=== PATIENT | female | born 1960 | race Caucasian/White ===

== ENCOUNTER 2017-02-08 09:00 | Inpatient (IN) | payer OTHER, MEDICARE ==
--- NOTE | ~2017-02-08 | HP ---
History And Physical [place] [address] [facility] [place]. [address] NAME: ECHO OLSON : 60 STATUS : ADM IN [facility]#: [id number] AGE: 56 ADM/REG DATE : 02/08/17 MR#: [id number] REPORT SERV DATE: 02/08/17 DICTATED BY: DIOMEDESQUENTIN WEBER DATE: 02/08/17 REPORT STATUS : Draft TRANSCRIBED BY: MODL DATE: 02/08/17 DATE OF ADMISSION: 02/08/2017 CHIEF COMPLAINT: Infected pain pump. HISTORY OF PRESENT ILLNESS: This is a 56-year-old lady with a history of pain pump implantation two months ago, presenting with an infected pain pump. Currently, the patient is postop and she is really not able to give a good history as the patient is coming off the anesthesia. This H and P is formulated from some of the history that was provided by the patient as well as from careful review of existing medical records. The patient apparently has had a cellulitis of her bottom for quite some time. It failed to get better as an outpatient, and thus the patient decided to come to the ER for further evaluation and care. When the patient presented to the ER, the patient appeared clinically ill and when she went to the bathroom, her bottom opened and apparently started draining pus. CT of the abdomen and pelvis was performed, which showed a fluid surrounding spinal wires posterior to the lumbar spine in L2 and small amount of air surrounding the stimulator device. The patient was thus immediately taken to the OR by Dr. Stern, who implanted the device in the first place about two months ago. The patient is now postop. REVIEW OF SYSTEMS: The patient denies any fevers or chills. Also, 14-point review of systems reviewed and negative other than mentioned above. MEDICATIONS: 1. OxyContin 30 mg p.o. q.8 hours. 2. Endocet 10/325 one tab p.o. q.6 hours p.r.n. 3. Neurontin 900 mg p.o. three times daily. 4. Zanaflex 4 mg p.o. three times daily. 5. Zocor 40 mg p.o. daily. 6. Levothyroxine 50 mcg p.o. daily. 7. Effexor 150 mg p.o. daily. 8. Lasix 80 mg p.o. daily. 9. Lisinopril 10 mg p.o. b.i.d. 10.Advil 1600 mg p.o. three times daily p.r.n. 11.Aspirin 81 mg p.o. daily. ALLERGIES: 1. PENICILLINS. 2. TETRACYCLINES. PAST MEDICAL HISTORY: 1. History of aseptic meningitis as well as viral meningitis. 2. Hypertension. 3. Diabetes type 2. 4. Obesity. History And Physical [address] [address] NAME: ECHO OLSON : 60 STATUS : ADM IN PAT#: [id number] AGE: 56 ADM/REG DATE : 02/08/17 MR#: [id number] REPORT SERV DATE: 02/08/17 DICTATED BY: QUENTIN HERCULES DATE: 02/08/17 REPORT STATUS : Draft TRANSCRIBED BY: CATHY DATE: 02/08/17 5. Chronic pain. PAST SURGICAL HISTORY: 1. Two C-spine surgeries. 2. Two L-spine surgeries. 3. Hysterectomy. 4. Cholecystectomy. FAMILY HISTORY: 1. Diabetes. 2. CVA. SOCIAL HISTORY: The patient smokes one pack of cigarettes on daily basis. The patient rarely ever consumes alcohol. The patient lives at home with her , and she is a retired staff accountant. PHYSICAL EXAMINATION: VITAL SIGNS: Temperature 98.5, blood pressure 117/59, pulse 96, respiratory rate is 14, saturating 100% on 3 L of oxygen GENERAL: The patient is alert and oriented x3 with no focal neurologic deficits. The patient is awake, does not appear to be in acute distress, and she is cooperative. NECK: No JVD. No lymphadenopathy. Normal thyroid. CHEST: No midline sternotomy scar and no tenderness to palpation. LUNGS: Fairly clear to auscultation bilaterally with normal respiratory effort on 3 L of oxygen per nasal cannula. CARDIOVASCULAR: Regular rate and rhythm with no murmurs, rubs, or gallops and PMI is nondisplaced. ABDOMEN: Soft and nontender with active bowel sounds and no organomegaly. EXTREMITIES: No edema. Normal distal pulses. No calf tenderness. SKIN: Clean, dry, warm, and intact. Surgical wound site was unable to be examined as the patient was not able to roll over. The patient just had a surgery and reportedly has a dressing to cover the surgical area. I will examine the area tomorrow. LABORATORY DATA: Sodium is 129, potassium 4.1, chloride 89, BUN 18, creatinine 1.15, glucose 301, calcium is 8.6. LFTs are fairly benign. White blood cell count is 11.0, hemoglobin 13.3, platelets 186. INR is 1.2. Lactate was 0.8. BNP was 82.5. Procalcitonin level was 1.39. Urinalysis was negative for UTI. Chest x-ray is personally interpreted and is benign, and CT of the abdomen and pelvis revealed a fluid surrounding the spinal wires posterior to the lumbar spine at L2. There is also a small amount of air around the stimulator device. There is a questionable relationship to the draining fluid. ABG performed in the ER showed a pH of 7.35, pCO2 of 47, pO2 of 51, and oxygen saturation of 85.6% on room air. ASSESSMENT: This is a 56-year-old lady with history of pain pump, presenting with an implanted pain pump infection. 1. Infection of implanted pain pump, status post surgical extraction. 2. Acute hypoxic respiratory failure, unclear etiology. The patient has clear chest x-ray History And Physical [address] [address] NAME: ECHO OLSON : 60 STATUS : ADM IN [facility]#: [id number] AGE: 56 ADM/REG DATE : 02/08/17 MR#: [id number] REPORT SERV DATE: 02/08/17 DICTATED BY: QUENTIN HERCULES DATE: 02/08/17 REPORT STATUS : Draft TRANSCRIBED BY: MODAlejandra DATE: 02/08/17 and is currently doing well postop. 3. History of aseptic meningitis as well as viral meningitis. 4. Hyponatremia. 5. Hypertension. 6. Diabetes type 2. 7. Obesity. 8. Chronic pain. PLAN: My plan is to admit the patient under telemetry monitoring. I will continue the antibiotics for now, and I will await results of the surgical cultures. In the meantime, the patient will be given IV fluid resuscitation. In's and out's will be closely monitored as well as daily labs to include electrolytes, LFTs, and CBC. I will have a low threshold to consult Infectious Disease. Wound Care will also be consulted to help on this case. Otherwise, for the rest of stable past medical conditions including hypertension, diabetes, et al., I will continue home medications. Standard DVT prophylaxis. The patient is full code at this time. YSC/MODL Quentin Hercules MD / [id number] CC: MD Ki Wright John Scott Hodges, D.O. Gregory Ball, M.D.
--- NOTE | ~2017-02-08 | CN ---
Consultation Report [facility] [address] [place]. [address] NAME: ECHO OLSON : 60 STATUS : ADM IN [facility]#: [id number] AGE: 56 ADM/REG DATE : 02/08/17 MR#: [id number] REPORT SERV DATE: 02/09/17 DICTATED BY: ALEAH RAMOS DATE: 02/09/17 REPORT STATUS : Draft TRANSCRIBED BY: MODL DATE: 02/09/17 INFECTIOUS DISEASE CONSULTATION DATE OF CONSULTATION: REASON FOR REFERRAL: Evaluation and treatment of sepsis related to an infected pain pump. HISTORY OF PRESENT ILLNESS: The patient is a 56-year-old female. She has a history of hypertension, diabetes mellitus, and morbid obesity. She has had chronic back pain for some time and had a pain pump stimulator placed on 12/09 at an outpatient surgery center by Dr. Stern, pain specialist. She states that initially it did well and that the pain pump worked extremely well at relieving her pain. Last week, though she developed pain and swelling both around the upper part of her right buttock where the pump was and extending up onto her back. She got fever, shaking chills, increasing malaise and flu-like symptoms, so came in and was admitted yesterday. Cultures were taken, and then she was started on intravenous antibiotics in the form of vancomycin and clindamycin. She was seen by Dr. Stern and taken to surgery yesterday, and the pump itself was explanted and the leads were removed as well. Cultures from those procedures are growing gram-positive cocci that looks most like a group B strep. She has had one of two blood cultures return positive for gram-positive cocci and identification of that is still pending. She still has significant pain, but is feeling a little bit better today. She denies any trauma or unusual environmental exposures to the device recently. PAST MEDICAL HISTORY: Otherwise, unremarkable. MEDICATIONS: As mentioned above. ALLERGIES: SHE HAS AN ALLERGY TO PENICILLIN, WHICH CAUSES A RASH AND WHEEZING. SOCIAL HISTORY: She does continue to smoke. She is on disability. No history of alcohol or substance abuse. She is single. FAMILY HISTORY: Noncontributory. PHYSICAL EXAMINATION: GENERAL: A nontoxic adult female, in no acute distress. She is alert and oriented x3. VITAL SIGNS: Her temperature is 98.6 at present, pulse 89, respirations 20, blood pressure 120/69, weight 121 kg. HEENT: Sclerae clear. No oral lesions. LUNGS: Clear. HEART: Regular rate and rhythm. ABDOMEN: Soft and nontender. Positive bowel sounds. EXTREMITIES: Without clubbing or cyanosis. Consultation Report [place] [id number] [id number] NAME: ECHO OLSON : 60 STATUS : ADM IN [facility]#: [id number] AGE: 56 ADM/REG DATE : 02/08/17 MR#: [id number] REPORT SERV DATE: 02/09/17 DICTATED BY: ALEAH RAMOS DATE: 02/09/17 REPORT STATUS : Draft TRANSCRIBED BY: CATHY DATE: 02/09/17 SKIN: She has the surgical sites that are covered by dressings now, which appeared to be clean around, and the dressings are intact. LABORATORY DATA: Her white blood cell count at presentation was 11 and is 9.9 today with a hematocrit of 36.4, platelets 218. BUN and creatinine 12 and 0.76. Procalcitonin 2.67. IMPRESSION: Infected pain pump and leads, that appears to be likely group B strep, and with associated sepsis. RECOMMENDATIONS: 1. We will change the antibiotics to Ancef. She has taken cephalosporins in the past without difficulty, so I feel it is safe to use these, even though her history of penicillin allergy sounds like it could be anaphylaxis. 2. Follow up the cultures tomorrow to make sure nothing additional was found. 3. Finally, I will follow the patient with you. I appreciate very much your consulting on this patient. CLARA Aleah Ramos M.D. / [id number] CC: MD Ki Wright,Raimundo Stern M.D.
--- NOTE | ~2017-02-08 | OP ---
Record Of Operation [facility] [address] [place]. [address] NAME: ECHO OLSON : 60 STATUS : ADM IN PAT#: [id number] AGE: 56 ADM/REG DATE : 02/08/17 MR#: [id number] REPORT SERV DATE: 02/10/17 DICTATED BY: ROSCOE WILCOX DATE: 02/09/17 REPORT STATUS : Draft TRANSCRIBED BY: CATHY DATE: 02/09/17 DATE OF PROCEDURE: 02/08/2017 PROCEDURE: Spinal cord stimulator system explant with generator and two percutaneous neurostimulator electrode arrays. PREOPERATIVE DIAGNOSIS: Infected spinal cord stimulator implant. POSTOPERATIVE DIAGNOSIS: Infected spinal cord stimulator implant. ANESTHESIA: General endotracheal anesthesia. IV FLUIDS: 800 mL LR. ESTIMATED BLOOD LOSS: Minimal. URINE OUTPUT: Not measured. COMPLICATIONS: None. DESCRIPTION OF PROCEDURE: With informed consent obtained, the patient was taken to the operating room and positioned prone on a radiolucent table. Under general endotracheal anesthesia, after already having received IV vancomycin and clindamycin in the emergency room, the area of the lumbosacral spine and right buttock was prepped and draped in a sterile fashion and the skin anesthetized with 1% lidocaine with epinephrine 1:200,000. Wound incisions were made along the fresh recent surgical incisions at the lumbar insertion site and the right generator pocket site on the buttock. Copious purulent discharge was noted from both the lumbar insertion site and the generator pocket site. The soft tissues were dissected to expose the two percutaneous neurostimulator leads and their anchors at the lumbar insertion site and the generator at the pocket site. The two anchors and leads were removed from the lumbar epidural space intact. The anchors were removed from the leads. The generator was then removed from the pocket and the leads pulled through from the insertion site to the generator pocket, also still intact. Prior to irrigation, cultures x3 were obtained from each of the lumbar insertion site and the generator pocket site. Both sites were irrigated with pulsatile lavage, with a total of 3 L sterile saline utilized for irrigation of both sites divided equally between the two sites. Both sites were then primarily closed with 0-Vicryl for the deep tissues and 2-0 Quill for the subcutaneous layers, all in a running fashion. Benzoin and Steri-Strips were applied followed by Primapore dressing at each site. The patient tolerated the entire procedure well and was transferred to the recovery room in excellent condition. After appropriate postprocedure monitoring, she would be admitted to the hospital floor to the Hospitalist Service for inpatient treatment. She would resume all her usual home medications, with the simple adjustment of her usual breakthrough pain medication from oxycodone 10 mg q.6 hours to q.3 to 4 hours as needed for postop pain, with IV Dilaudid available for rescue pain. Record Of [address] [place]. [address] NAME: ECHO OLSON : 60 STATUS : ADM IN PAT#: [id number] AGE: 56 ADM/REG DATE : 02/08/17 MR#: [id number] REPORT SERV DATE: 02/10/17 DICTATED BY: ROSCOE WILCOX DATE: 02/09/17 REPORT STATUS : Draft TRANSCRIBED BY: CATHY DATE: 02/09/17 PAULINA/CATHY Roscoe Wilcox M.D. / [id number] CC: MD ANDREAS Wright
--- NOTE | ~2017-02-08 | DS ---
Discharge Summary [facility] [address] [place]. [address] NAME: ECHO OLSON : 60 STATUS : DIS IN PAT#: [id number] AGE: 56 ADM/REG DATE : 02/08/17 MR#: [id number] REPORT SERV DATE: 02/21/17 DICTATED BY: DIOMEDESQUENTIN SEANGELIKA DATE: 02/20/17 REPORT STATUS : Draft TRANSCRIBED BY: MODL DATE: 02/20/17 ADMISSION DATE: 02/08/2017 DISCHARGE DATE: 02/11/2017 DISCHARGE DIAGNOSES: 1. Infected spine stimulator device, status post extraction. 2. Strep bacteremia. 3. Chronic back pain and narcotic dependence. 4. Hyponatremia. 5. Transient hypoxia on admission, resolved. 6. Diabetes. CONSULTANTS: 1. Dr. Gaston of Infectious Disease. 2. Dr. Stern of Pain Management. PROCEDURE: Extraction of the spine stimulator on 02/08/2017. HOSPITAL COURSE: This is a 56-year-old lady with a history of chronic back pain and narcotic dependence who was admitted to the hospital with infected spine stimulator. For details, please refer to my own H and P. In summary, the patient was taken to the OR on the day of admission to have the infected spine stimulator device extracted. The patient was maintained on broad-spectrum antibiotics until the wound cultures as well as blood cultures grew strep species. Infectious Disease was involved in her care, and the patient's antibiotics were quickly de-escalated to Ancef. The patient actually improved dramatically with the IV antibiotic therapy after the source of infection was removed. As per Infectious Disease recommendations, the patient will need two weeks of IV Ancef therapy. The patient was actually ready for discharge on 02/10/2017; however, it took an additional day to arrange outpatient antibiotic therapy. The patient was thus discharged home on 02/11/2017 with a PICC line to continue two weeks of IV Ancef therapy. DISPOSITION: Home. DISCHARGE MEDICATIONS: No changes other than two weeks of Ancef per PICC. FOLLOWUP: 1. Please follow up with PCP in the next one to two weeks. 2. Please follow up with Dr. Stern in the next one to two weeks. A total of 25 minutes were spent in coordinating this patient's discharge. NELLY/CATHY Quentin Hercules MD Discharge Summary [address] [place]. [address] NAME: ECHO OLSON : 60 STATUS : DIS IN PAT#: [id number] AGE: 56 ADM/REG DATE : 02/08/17 MR#: [id number] REPORT SERV DATE: 02/21/17 DICTATED BY: QUENTIN HERCULES DATE: 02/20/17 REPORT STATUS : Draft TRANSCRIBED BY: CATHY DATE: 02/20/17 / [id number] CC: Sincere Schneider MD
[~2017-02-08 09:00] MED LIST: ADVIL PO; ATV.5 PO; BACLOFEN20 MG PO; COMBIVENT INH; DIABETA5 PO; EFFEX75 PO; EFFEXOR XR150 MG PO; EFFEXXR75 PO; ESTRATESHS PO; FLEX PO; GLUCPH PO; HABIT14 TOP; L20 PO; LANTUS SC; LEVEMIR SC; LIOR10 PO; LORT7 PO; LYRICA150 MG PO; METHOC750B PO; MUCINEX600 MG PO; NEUR300 PO; NEUR600 PO; NOVOLOG SC; OXYCOD PO; OXYCON20 PO; OXYCONTIN30 MG PO; PEP20 PO; PERCOCET1 TA4 PO; PRIN10 PO; T PO; V5 PO; VALTREX1 GM PO; VALTREX5 PO; ZANAFLEX 4 MG TA4 MG PO; ZOCOR40 PO
[2017-02-08 10:09] LABS: BASOPHILS 0.2 %; BASOPHILS ABSOLUTE 0.02 10/3/uL (0.0-0.16); EOSINOPHILS 0.4 %; EOSINOPHILS ABSOLUTE 0.04 10/3/uL (0.0-0.53); ER CBC TAT 0 Hrs 05 Mins; HEMATOCRIT 37.9 % (36.0-48.0); HEMOGLOBIN 13.3 g/dL (12.0-16.0); IMMATURE GRANULOCYTES 1.1 %; IMMATURE GRANULOCYTES ABSOLUTE 0.12 10/3/uL (0.0-0.11); LYMPHOCYTES 8.9 %; LYMPHOCYTES ABSOLUTE 0.98 10/3/uL (0.67-4.30); MEAN CORPUS HGB CONC 35.1 g/dL (32.0-36.0); MEAN CORPUSCULAR VOLUME 85.6 fL (80-100); MEAN PLATELET VOLUME 10.3 fL (9.2-13.0); MONOCYTES 11.5 %; MONOCYTES ABSOLUTE 1.26 10/3/uL (0.21-1.20); NEUTROPHILS 77.9 %; NEUTROPHILS ABSOLUTE 8.57 10/3/uL (2.02-8.40); PLATELET COUNT 186 10/3/uL (150-400); RBC DISTRIBUTION WIDTH 13.5 % (12.0-16.0); RED CELL COUNT 4.43 10/6/uL (4.0-5.6)
[2017-02-08 10:10] LABS: MANUAL DIFF NO %
[2017-02-08 10:24] LABS: A/G RATIO 0.6 (0.7-1.9); ALBUMIN 2.7 G/DL (3.5-5.0); ALKALINE PHOSPHATASE 372 U/L (45-117); BUN (BLOOD UREA NITROGEN) 18 MG/DL (6-23); CALCIUM, SERUM 8.6 MG/DL (8.5-10.4); CHLORIDE, SERUM 89 MMOL/L (96-112); CO2 (CARBON DIOXIDE) 31 MMOL/L (24-34); CREATININE 1.15 MG/DL (0.55-1.02); GFR AFRICAN AMERICAN 62 ML/MIN (>=60); GFR NON AFRICAN AMERICAN 53 ML/MIN (>=60); GLOBULIN 4.6 G/DL (2.5-4.1); GLUCOSE, SERUM 301 MG/DL (60-99); POTASSIUM, SERUM 4.1 MMOL/L (3.5-5.3); SGOT(AST) 65 U/L (5-40); SGPT(ALT) 70 U/L (5-65); SODIUM, SERUM 129 MMOL/L (135-148); TOTAL BILIRUBIN 1.5 MG/DL (0-1.2); TOTAL PROTEIN 7.3 G/DL (6.0-8.5)
[2017-02-08 10:26] LABS: LACTATE 0.8 MMOL/L (0.3-2.4)
[2017-02-08 10:45] LABS: ASCORBIC ACID (UR NOT ORDER) NEG (NEG); BILIRUBIN, URINE NEGATIVE (NEG); KETONE, URINE NEGATIVE (NEG); LEUKOCYTE ESTERASE(NOT OR NEG (NEG); NITRITE (URINE) NEG (NEG); WBC (NOT ORDERED) (RFLEX) 2 (0-5)
[2017-02-08] MEDS ORDERED: OXYCONTIN30 MG PO (10:53)
[2017-02-08] MEDS ORDERED: ENDOCET1 TA3 PO (10:53)
[2017-02-08] MEDS ORDERED: NEUR300 PO (10:53)
[2017-02-08] MEDS ORDERED: ZOCOR40 PO (10:54)
[2017-02-08] MEDS ORDERED: ZANAFLEX 4 MG TA4 MG PO (10:54)
[2017-02-08 10:55] LABS: INTERNATIONAL NORMAL RATI 1.2 UNITS (-)
[2017-02-08] MEDS ORDERED: L80 PO (10:55)
[2017-02-08] MEDS ORDERED: PRIN10 PO (10:55)
[2017-02-08] MEDS ORDERED: LEVOTHYROXIN50 MCG PO (10:55)
[2017-02-08] MEDS ORDERED: EFFEXOR XR150 MG PO (10:55)
[2017-02-08 10:56] LABS: PARTIAL THROMBO TIME 30.9 SEC (22.5-37.2); PROTIME (NOT ORD) 15.3 SEC (12.0-14.5)
[2017-02-08] MEDS ORDERED: ADVIL PO (10:56)
[2017-02-08] MEDS ORDERED: HALF81 PO (10:56)
[2017-02-08 11:09] LABS: INSTRUMENT SERIAL # 8087; PCO2 (CO2 TENSION) 47 MMHG (35-45); PO2 (O2 TENSION) 51 MMHG (79-93); pH 7.35 (7.37-7.43)
[2017-02-08 11:10] LABS: ALLENS TEST Pos; BE (BASE EXCESS) -0.6 MEQ/L (0 +/- 2.5); CARBOXYHEMOGLOBIN 5.1 % (0-3); HCO3 (ACTUAL BICARBONATE) 25.4 MEQ/L (23-27); HEMOBLOGIN CONTENT 13.3 G/DL (12-16); METHEMOGLOBIN 0.3 % (0-3); O2 CONTENT 15.1 VOL% (18-24); SAMPLE Arterial
[2017-02-09 06:07] LABS: BASOPHILS 0.2 %; BASOPHILS ABSOLUTE 0.02 10/3/uL (0.0-0.16); EOSINOPHILS 0.4 %; EOSINOPHILS ABSOLUTE 0.04 10/3/uL (0.0-0.53); HEMATOCRIT 36.4 % (36.0-48.0); HEMOGLOBIN 12.3 g/dL (12.0-16.0); LYMPHOCYTES ABSOLUTE 1.39 10/3/uL (0.67-4.30); MEAN CORPUS HGB CONC 33.8 g/dL (32.0-36.0); MEAN CORPUSCULAR HEMOGLOB 29.2 pg (26.0-34.0); MEAN CORPUSCULAR VOLUME 86.5 fL (80-100); MEAN PLATELET VOLUME 10.4 fL (9.2-13.0); MONOCYTES 10.3 %; MONOCYTES ABSOLUTE 1.02 10/3/uL (0.21-1.20); NEUTROPHILS 74.1 %; NEUTROPHILS ABSOLUTE 7.33 10/3/uL (2.02-8.40); PLATELET COUNT 218 10/3/uL (150-400); RBC DISTRIBUTION WIDTH 13.9 % (12.0-16.0); RED CELL COUNT 4.21 10/6/uL (4.0-5.6); WHITE BLOOD CELLS 9.9 10/3/uL (4.5-10.5)
[2017-02-09 06:09] LABS: MANUAL DIFF NO %
[2017-02-09 06:16] LABS: CALCIUM, SERUM 8.5 MG/DL (8.5-10.4); CREATININE 0.76 MG/DL (0.55-1.02); GFR AFRICAN AMERICAN 102 ML/MIN (>=60); GFR NON AFRICAN AMERICAN 88 ML/MIN (>=60); GLUCOSE, SERUM 250 MG/DL (60-99); POTASSIUM, SERUM 4.3 MMOL/L (3.5-5.3); SODIUM, SERUM 134 MMOL/L (135-148)
[2017-02-09 06:17] LABS: BUN (BLOOD UREA NITROGEN) 12 MG/DL (6-23); CHLORIDE, SERUM 100 MMOL/L (96-112); CO2 (CARBON DIOXIDE) 24 MMOL/L (24-34)
[2017-02-09 06:58] LABS: PROCALCITONIN 2.67 ng/mL (<0.5)
[2017-02-10 06:01] LABS: BASOPHILS 0.1 %; BASOPHILS ABSOLUTE 0.01 10/3/uL (0.0-0.16); EOSINOPHILS 1.6 %; EOSINOPHILS ABSOLUTE 0.16 10/3/uL (0.0-0.53); HEMATOCRIT 34.5 % (36.0-48.0); HEMOGLOBIN 11.9 g/dL (12.0-16.0); IMMATURE GRANULOCYTES 1.8 %; IMMATURE GRANULOCYTES ABSOLUTE 0.18 10/3/uL (0.0-0.11); LYMPHOCYTES 16.9 %; LYMPHOCYTES ABSOLUTE 1.65 10/3/uL (0.67-4.30); MEAN CORPUS HGB CONC 34.5 g/dL (32.0-36.0); MEAN CORPUSCULAR HEMOGLOB 29.5 pg (26.0-34.0); MEAN CORPUSCULAR VOLUME 85.6 fL (80-100); MEAN PLATELET VOLUME 10.4 fL (9.2-13.0); MONOCYTES 9.1 %; MONOCYTES ABSOLUTE 0.89 10/3/uL (0.21-1.20); NEUTROPHILS 70.5 %; PLATELET COUNT 253 10/3/uL (150-400); RBC DISTRIBUTION WIDTH 14.1 % (12.0-16.0); RED CELL COUNT 4.03 10/6/uL (4.0-5.6); WHITE BLOOD CELLS 9.8 10/3/uL (4.5-10.5)
[2017-02-10 06:07] LABS: MANUAL DIFF NO %
[2017-02-10 06:20] LABS: BUN (BLOOD UREA NITROGEN) 11 MG/DL (6-23); CALCIUM, SERUM 8.6 MG/DL (8.5-10.4); CHLORIDE, SERUM 98 MMOL/L (96-112); CO2 (CARBON DIOXIDE) 27 MMOL/L (24-34); CREATININE 0.63 MG/DL (0.55-1.02); GFR AFRICAN AMERICAN 116 ML/MIN (>=60); GFR NON AFRICAN AMERICAN 100 ML/MIN (>=60); GLUCOSE, SERUM 238 MG/DL (60-99); POTASSIUM, SERUM 4.1 MMOL/L (3.5-5.3); SODIUM, SERUM 134 MMOL/L (135-148)
[2017-02-10] MEDS ORDERED: CEFAZ1 IV (11:06)
== END 2017-02-11 18:20 | disposition home or self-care (01) | DRG 28 ==
LOC: ER 09:00 → 4SO 12:37
PROVIDERS: Internal Medicine; Physician Assistant
DX: T85.733A Infection and inflammatory reaction due to implanted electronic neurostimulator of spinal cord, electrode (lead), initial encounter (principal); J96.01 Acute respiratory failure with hypoxia; R65.20 Severe sepsis without septic shock; Z68.41 Body mass index [BMI] 40.0-44.9, adult; E87.1 Hypo-osmolality and hyponatremia; A40.1 Sepsis due to streptococcus, group B; E66.01 Morbid (severe) obesity due to excess calories; Y83.8 Other surgical procedures as the cause of abnormal reaction of the patient, or of later complication, without mention of misadventure at the time of the procedure; Y92.009 Unspecified place in unspecified non-institutional (private) residence as the place of occurrence of the external cause; Z79.82 Long term (current) use of aspirin; Z79.891 Long term (current) use of opiate analgesic; Z88.0 Allergy status to penicillin; Z88.1 Allergy status to other antibiotic agents; G89.29 Other chronic pain; I10 Essential (primary) hypertension; F17.210 Nicotine dependence, cigarettes, uncomplicated; J44.9 Chronic obstructive pulmonary disease, unspecified; E11.9 Type 2 diabetes mellitus without complications
CPT/HCPCS: 36415; 36569; 36600; 71010; 74176; 80048; 80053; 81001; 82805; 82962; 83605; 83880; 84145; 85025; 85610; 85730; 86850; 86900; 86901; 87015; 87040; 87070; 87075; 87077; 87102; 87116; 87150; 87186; 87205; 88300; 93005; 96365; 96375; 99285; A9270-GY; C1751; J0330; J0690; J1170; J2405; J3010; J3370